=== PATIENT | female | born 1940 | race Caucasian/White ===

== ENCOUNTER → 2016-06-10 | Outpatient (CLI) | payer OTHER ==
--- NOTE | 2016-06-10 16:37 | DX ---
DEXA Bone Mineral Densitometry Screening Clinical Indications: Followup osteoporosis. The questionnaire, the patient also reports family hist ory of osteoporosis and parent with history of hip fracture. The patient also reports back pain. Prev ious left wrist fracture as well as bilateral hip fractures with femur fracture. Prior history breast cancer 2004. The patient takes supplemental calcium of 1000 mg per day along with 2000 units of val min D. She exercises regularly. Comparison: May 11, 2013 Technique: Bone Mineral Densitometry (BMD) by Dual Energy X-Ray Absorptiometry (DEXA) was performed utilizing the [employer] scanner. The lumbar spine was evaluated in the AP projection. The right forearm was evaluated in the AP projection. Vertebral fracture assessment was also performed. AP Lumbar Spine: The L1, L2, L3 and L4 vertebral bodies are evaluated. BMD: 1.210 gm/cm2 T-score: 0.1 SD Z-score: 2.1 SD Since the previous study, there has been no significant change. AP right Forearm: BMD: 0.635 gm/cm2 T-score: -2.8 SD Z-score: -0.6 SD Since the previous study, there has been no significant change. Vertebral Fracture Assessment: No significant fracture deformity. Conclusion: Considering the lowest measured site, the patient is osteoporotic with the greatest degre e in the forearm. Any bone loss in this patient is probably related to aging or estrogen deficiency. These values are stable when compared to the prior study. Preferential bone loss in the forearm robertson s raise the possibility of underlying hyperparathyroidism. Recommendations: To prevent osteoporosis and to promote bone density, consider the followin. Consider checking patient's PTH and serum calcium and phosphorus levels for possible hyperparathyr oidism. 2. Pursue a regular regimen of weightbearing and muscle-strengthening exercises in order to reduce th e risk of falls and fracture (as tolerated by the patient's general medical condition). 3. Ensure that total daily calcium intake is at least 1500 mg (diet more important than supplements). 4. Check serum hydroxy vitamin D3 (normal >30ng/ml). 5. Ensure daily intake of vitamin D at least 800 international units. 6. Consider follow up DEXA scan in 2-4 years to assess the rate of bone loss in this patient. 7. If secondary causes are excluded, then consider initiating treatment with a bisphosphonate (such a s Fosamax, Actonel or Boniva). If the patient is unable to use an oral bisphosphonate, another agent such as IV bisphosphonates (Boniva or Reclast), teriparatide (Forteo), or a selective estrogen recept or modulator (Evista) might be considered.
== END ==
LOC: FIMAGING 13:17
PROVIDERS: ATTEND Internal Medicine
DX: M81.0 Age-related osteoporosis without current pathological fracture (principal); M54.9 Dorsalgia, unspecified; Z82.62 Family history of osteoporosis

== ENCOUNTER → 2016-06-19 | Outpatient (CLI) | payer OTHER ==
--- NOTE | 2016-06-19 16:44 | MA ---
Screening Digital Mammogram with Digital Breast Tomosynthesis Unilateral Left Side Clinical Indications: Routine screening. Previous right-sided mastectomy. Technique: Standard cephalocaudal projections are obtained of left breast. Digital breast tomosynthe sis was performed in the MLO projection of the left breast with reconstruction at 1.0 mm slice thickn ess and composite MLO views reconstructed. This examination is processed by the CAD computer aided de tection system. Comparison: June 18, 2015; May 28, 2014; May 13, 2013. Breast density: B; There are scattered areas of fibroglandular density. Findings: CAD was reviewed. There are no new masses, new clusters of microcalcifications, or significant axillary lymphadenopathy . Impression: Negative mammogram. BI-RADS 1. Recommendation: Routine screening mammogram is recommended in one year. [facility] will send a result letter to the patient. Negative mammography should not preclude additional workup of a clinically suspicious finding. The patient's information is entered into a reminder system with a target due date for her next mammo gram.
== END ==
LOC: FIMAGING 11:05
DX: Z12.31 Encounter for screening mammogram for malignant neoplasm of breast (principal)
CPT/HCPCS: G0202-52

== ENCOUNTER → 2017-06-29 | Outpatient (CLI) | payer OTHER | LOC: FIMAGING 10:42 | PROVIDERS: ATTEND Internal Medicine | DX: Z12.31 Encounter for screening mammogram for malignant neoplasm of breast (principal); Z85.3 Personal history of malignant neoplasm of breast ==

== ENCOUNTER → 2017-07-19 | Outpatient (CLI) | payer OTHER | LOC: FIMAGING 10:47 | PROVIDERS: ATTEND Physician Assistant | DX: H83.91 Unspecified disease of right inner ear (principal) ==

== ENCOUNTER 2018-04-14 11:44 | Observation (INO) | payer OTHER ==
--- NOTE | 2018-04-14 12:07 | EDPHY ---
H & P Time Seen by Provider: 04/14/18 12:07 HPI/ROS: CHIEF COMPLAINT: Difficulty speaking and confusion HISTORY OF PRESENT ILLNESS: Patient was in her usual good health until yesterday around 11:00 a.m. When she went to a play with friends. They noticed that she was having difficulty speaking and the patient felt somewhat off like her mental status was different. She felt like she had some difficulty thinking of the words to say getting the mouth. She was also confused, she noted that yesterday she had difficulty figuring out how to get in her car. Today she can't remember how she got to her bed last night she still has trouble thinking of words and trouble of saying them. This is not associated with headache or double vision or trouble with her balance or weakness or numbness in extremities. No history of seizure, no ingestions, no changes in medications. REVIEW OF SYSTEMS: Eye: no change in vision ENT: no sore throat Cardiac: no chest pain or syncope Pulmonary: no cough or SOB Abdomen: no vomiting, diarrhea, abdominal pain Musculoskeletal: No neck pain Skin: no rash Neuro: HPI Constitutional: no fever : no urinary symptoms A comprehensive 10 point review of systems is otherwise negative aside from elements mentioned in the history of present illness. 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 Eyes: No scleral icterus. Pupils equal reactive extraocular motion intact. ENT, Mouth: Normal mucous membranes. Respiratory: Normal respiratory effort, breath sounds equal, lungs are clear to auscultation. Cardiovascular: Regular rate and rhythm. Gastrointestinal: Abdomen is soft and non tender. Neurological: Alert, face symmetric, normal motor and sensory in extremities. Speech is halting but fluent. She does have some difficulty getting words out but does not have difficulty pronouncing words. She is able to name objects. She knows how old she is and where she is. Skin: Warm and dry, no rashes. Musculoskeletal: No peripheral edema. Psychiatric: Not agitated. Emergency Department course/[facility]: 1405: results discussed. Admission for encephalopathy. She is not made a stroke alert because her onset of symptoms was greater than 24 hr. Does not have evidence for intracranial bleed or mass, no evidence for great vessel occlusion. Smoking Status: Never smoked Constitutional: Initial Vital Signs Temperature (C) 36.3 C 04/14/18 11:50 Heart Rate 92 04/14/18 11:50 Respiratory Rate 16 04/14/18 11:50 Blood Pressure 144/89 H 04/14/18 11:50 O2 Sat (%) 93 04/14/18 11:50 O2 Delivery Mode Room Air Allergies/Adverse Reactions: amoxicillin [Amoxicillin] Allergy (Severe, Verified 04/14/18 11:50) Rash erythromycin base [Erythromycin Base] Allergy (Severe, Verified 04/14/18 11:50) GI PAIN lactose [Lactose] Allergy (Severe, Verified 04/14/18 11:50) GI UPSET Home Medications: Medication Instructions Recorded Triamcinolone Acetonide [Nasacort] 2 sprays EACHNARE DAILY 05/03/16 Aspirin [Aspirin 81mg (*)] 81 mg PO Q2D 04/14/18 C/E/Zn/Cu/OM3/DHA/EPA/LUT/ZEAX 1 each PO DAILY 04/14/18 [Preservision Areds 2 Softgel] Carboxymethylcellulose 1% [Refresh 1 evaristo EACHEYE DAILY PRN 04/14/18 Celluvisc (*)] Cholecalciferol Vit D3 [Vitamin D3 2,000 units PO DAILY 04/14/18 2000 units tab (OTC)] Glucosamine/Chondroitin 1 each PO DAILY 04/14/18 [Glucosamine/Chondroitin (*)] Ibuprofen [Motrin (*)] 200 mg PO DAILY PRN 04/14/18 Multivitamins [Multivitamin (*)] 1 each PO Q2D 04/14/18 Sodium Cl Nasal [[place] (*)] 1 spray NS DAILY 04/14/18 Vitamin B Complex [Vitamin B 1 each PO DAILY 04/14/18 Complex (OTC)] Medical Decision Making - Diagnostics EKG Interpretation: 12-lead EKG interpreted by me; official reading is in computer system. My interpretation is sinus rhythm with left anterior fascicular block and LVH. Imaging Results: Imaging Impressions Head CT 04/14/18 12:34 Impression: 1. No acute intracranial findings. 2. Diffuse cerebral atrophy with periventricular and subcortical low attenuation consistent with chronic microvascular ischemic gliosis. Findings discussed with NAHID ENGLAND 04/14/2018 at 13:52. Head CTA 04/14/18 12:34 Impression: 1. No significant atherosclerotic disease. 2. Patent bilateral carotid and vertebral system without evidence of flow- limiting stenosis, occlusion, or dissection. Measurement of carotid stenosis is based on the residual internal carotid diameter with [place] Symptomatic Carotid Endarterectomy Trial (NASCET) based stenosis levels. CT Angiogram of the Brain Clinical Indications: Trouble with speech, slurred speech, memory loss. Technique: CT angiogram of the brain and neck was performed with the uneventful intravenous administration of 85 mL Isovue-370 contrast. Multiplanar reconstructions including 3D reconstructions performed and evaluated on Vitrea workstation in order to better evaluate the [place] vessels. Images were manipulated by the radiologist at the computer workstation. Dose reduction techniques were utilized. Findings: Major vessels of the [place] are adequately displayed, demonstrating no evidence of aneurysm, vascular malformation, flow-limiting stenosis, or occlusion. Bilateral cavernous internal carotid arteries and vertebrobasilar system demonstrates no evidence of flow-limiting stenosis, aneurysm, occlusion, or dissection. Minimal cerebrovascular atherosclerotic calcification of bilateral cavernous internal carotid arteries. Superior sagittal sinus, transverse sinuses, and major veins demonstrate no evidence of intraluminal thrombi. Impression: 1. Minimal cerebrovascular atherosclerosis. 2. No flow-limiting stenosis or intraluminal thrombi. Findings and recommendations discussed with Emergency Department physician, Dr. Nahid England at 1353 hours on April 14, 2018. Final report concurs with initial preliminary interpretation. Neck CTA 04/14/18 12:34 Impression: 1. No significant atherosclerotic disease. 2. Patent bilateral carotid and vertebral system without evidence of flow- limiting stenosis, occlusion, or dissection. Measurement of carotid stenosis is based on the residual internal carotid diameter with [place] Symptomatic Carotid Endarterectomy Trial (NASCET) based stenosis levels. CT Angiogram of the Brain Clinical Indications: Trouble with speech, slurred speech, memory loss. Technique: CT angiogram of the brain and neck was performed with the uneventful intravenous administration of 85 mL Isovue-370 contrast. Multiplanar reconstructions including 3D reconstructions performed and evaluated on [employer] workstation in order to better evaluate the [place] vessels. Images were manipulated by the radiologist at the computer workstation. Dose reduction techniques were utilized. Findings: Major vessels of the [place] are adequately displayed, demonstrating no evidence of aneurysm, vascular malformation, flow-limiting stenosis, or occlusion. Bilateral cavernous internal carotid arteries and vertebrobasilar system demonstrates no evidence of flow-limiting stenosis, aneurysm, occlusion, or dissection. Minimal cerebrovascular atherosclerotic calcification of bilateral cavernous internal carotid arteries. Superior sagittal sinus, transverse sinuses, and major veins demonstrate no evidence of intraluminal thrombi. Impression: 1. Minimal cerebrovascular atherosclerosis. 2. No flow-limiting stenosis or intraluminal thrombi. Findings and recommendations discussed with Emergency Department physician, Dr. Nahid England at 1353 hours on April 14, 2018. Final report concurs with initial preliminary interpretation. Imaging: Discussed imaging studies w/ rail car mechanic Radiologist Differential Diagnosis: Differential considered including but not limited to hypoglycemia, other metabolic, stroke or seizure, intoxicants Consult/Admit Bed Type: [place] [id number] for Andre, [facility] 1413 - Data Points Laboratory Results: Laboratory Results 04/14/18 12:22 04/14/18 12:22 04/14/18 04/14/18 04/14/18 12:29 12:22 12:22 WBC 4.72 10^3/uL 10^3/uL (3.80-9.50) RBC 4.64 10^6/uL 10^6/uL (4.18-5.33) Hgb 14.2 g/dL g/dL (12.6-16.3) POC Hgb 14.6 gm/dL gm/dL (12.6-16.3) Hct 41.4 % % (38.0-47.0) POC Hct 43 % % (38-47) MCV 89.2 fL fL (81.5-99.8) MCH 30.6 pg pg (27.9-34.1) MCHC 34.3 g/dL g/dL (32.4-36.7) RDW 12.7 % % (11.5-15.2) Plt Count 198 10^3/uL 10^3/uL (150-400) MPV 9.4 fL fL (8.7-11.7) Neut % (Auto) 53.0 % % (39.3-74.2) Lymph % (Auto) 35.6 % % (15.0-45.0) [place] % (Auto) 9.7 % % (4.5-13.0) Eos % (Auto) 0.4 % L % (0.6-7.6) Baso % (Auto) 1.1 % % (0.3-1.7) Nucleat RBC Rel Count 0.0 % % (0.0-0.2) Absolute Neuts (auto) 2.50 10^3/uL 10^3/uL (1.70-6.50) Absolute Lymphs (auto) 1.68 10^3/uL 10^3/uL (1.00-3.00) Absolute Monos (auto) 0.46 10^3/uL 10^3/uL (0.30-0.80) Absolute Eos (auto) 0.02 10^3/uL L 10^3/uL (0.03-0.40) Absolute Basos (auto) 0.05 10^3/uL 10^3/uL (0.02-0.10) Absolute Nucleated RBC 0.00 10^3/uL 10^3/uL (0-0.01) Immature Gran % 0.2 % % (0.0-1.1) Immature Gran # 0.01 10^3/uL 10^3/uL (0.00-0.10) POC Sodium 142 mEq/L mEq/L (135-145) Sodium 138 mEq/L mEq/L (135-145) POC Potassium 3.8 mEq/L mEq/L (3.3-5.0) Potassium 4.2 mEq/L mEq/L (3.3-5.0) POC Chloride 107 mEq/L mEq/L (97-110) Chloride 106 mEq/L mEq/L (97-110) Carbon Dioxide 24 mEq/l mEq/l (22-31) Anion Gap 8 mEq/L mEq/L (6-14) POC BUN 21 mg/dL mg/dL (7-23) BUN 20 mg/dL mg/dL (7-23) Creatinine 0.7 mg/dL mg/dL (0.6-1.0) POC Creatinine 0.7 mg/dL mg/dL (0.6-1.0) Estimated GFR > 60 Glucose 86 mg/dL mg/dL (70-100) POC Glucose 85 mg/dL mg/dL (70-100) Calcium 9.5 mg/dL mg/dL (8.5-10.4) Total Bilirubin Conjugated Bilirubin Unconjugated Bilirubin AST ALT Alkaline Phosphatase Troponin I Total Protein Albumin TSH 04/14/18 11:50 WBC RBC Hgb POC Hgb Hct POC Hct MCV MCH MCHC RDW Plt Count MPV Neut % (Auto) Lymph % (Auto) [place] % (Auto) Eos % (Auto) Baso % (Auto) Nucleat RBC Rel Count Absolute Neuts (auto) Absolute Lymphs (auto) Absolute Monos (auto) Absolute Eos (auto) Absolute Basos (auto) Absolute Nucleated RBC Immature Gran % Immature Gran # POC Sodium Sodium POC Potassium Potassium POC Chloride Chloride Carbon Dioxide Anion Gap POC BUN BUN Creatinine POC Creatinine Estimated GFR Glucose POC Glucose Calcium Total Bilirubin Pending Conjugated Bilirubin Pending Unconjugated Bilirubin Pending AST Pending ALT Pending Alkaline Phosphatase Pending Troponin I < 0.012 ng/mL ng/mL (0.000-0.034) Total Protein Pending Albumin Pending TSH Pending Point of Care Test Results: Chemistry 04/14/18 12:29 POC Sodium 142 mEq/L mEq/L (135-145) POC Potassium 3.8 mEq/L mEq/L (3.3-5.0) POC Chloride 107 mEq/L mEq/L (97-110) POC BUN 21 mg/dL mg/dL (7-23) POC Creatinine 0.7 mg/dL mg/dL (0.6-1.0) POC Glucose 85 mg/dL mg/dL (70-100) ISTAT H&H 04/14/18 12:29 POC Hgb 14.6 gm/dL gm/dL (12.6-16.3) POC Hct 43 % % (38-47) Departure - Departure Disposition: [facility] Inpatient Acute Clinical Impression: Encephalopathy acute Condition: Good
[2018-04-14] MEDS ORDERED: IOPAMIDOL (ISOVUE 370) 100 ML BTL IV ONE (12:41)
[2018-04-14 12:49] LABS: PLATELET COUNT 198 10^3/uL (150-400)
--- NOTE | 2018-04-14 13:48 | CPEKG ---
Test Reason : OPEN Blood Pressure : / mmHG Vent. Rate : 084 BPM Atrial Rate : 085 BPM P-R Int : 173 ms QRS Dur : 098 ms QT Int : 386 ms P-R-T Axes : 052 -62 063 degrees QTc Int : 457 ms Sinus rhythm Left anterior fascicular block Probable left ventricular hypertrophy Anterior Q waves, possibly due to LVH Confirmed by Mamadou Xiong ([id number]) on 04/14/2018 1:48:31 PM Referred By: Confirmed By:Mamadou Xiong
[2018-04-14] MEDS ORDERED: CARBOXYMETHYLCELLULOSE 1% 0.4 ML DROPERETTE EACHEYE PRN ×2 (14:05→14:39)
--- NOTE | 2018-04-14 14:16 | PDGENHP ---
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 She ate breakfast, cleaned her house, took a shower dressed and went to a play with some friends. She then was dropped off at her home doing well. She states that she did not eat lunch yesterday as she recalls and does not recall why. However in the later part of yesterday afternoon she drove to her restoration for her usual when stay choir practice to find out that she had arrived approximately 40 min early, which was a surprise to her. She then says she felt tired and sat down on a restoration pew and took a nap. As the rest of the choir members came in she her them and aroused and had a normal choir practice session. However after the choir when she when out to her car she could not figure out how to get into her car using the electric davila follow-up. She went back into the restoration and talk to 1 of the other choir members about at who showed her how to use the fob, but then the patient was unable to find her way back out of the restoration. The other restaurant team member then took her out to her car and had the patient pushed the button on the 5 which cause the lights to flash and they both assumed the car was working appropriately. No other restaurant team member left. However the patient was again unable to get her car in locked in could not figure out how to get in for which she believes was another 5 min. She finally got in but then could not figure out how to get the davila 5 into the car. After probably another 10 min or so she eventually got the car started but does not remember driving home. She remembers driving into her garage but then does not remember going into her house. Then despite not eating lunch she does not think she ate dinner last night. She does not remember much else about what happened last night. This morning when she woke up she relies she was quite confused. She went to call her sister but was unable to figure out how to type pain her code to unlock her cell phone. Eventually someone texted her on oral phone and she accidentally swiped across the screen on locking the phone. She there and called her sister and asked to be brought into the emergency room. She was still somewhat confused upon arrival to the emergency room but at this time her symptoms have fairly completely resolved. There may have been some word-finding issues as well but there were no other focal neurologic symptoms of any kind. She denies recalling headache, vision changes , palpitations chest pain or shortness of breath, fever symptoms, nausea, vertigo, change in hearing, change in ambulation although she says she felt slightly off balance. She has had no changes in medications recently and does not take any medications with neurologic side effects. She drinks 1-2 drinks per week and last had a drink about a week ago. She does state that she had been in [place] in March returning here April 02 and was drinking approximately 2 drinks per day there. However she did not have any problems with the alcohol. There is no previous history of dementia. She is aware of constant movement of her hands and feet since the but has not paid that any mind and does not interfere with any of her activities. She does admit that she times times hold her hands together or has to think to hold her feet still. There is no history of closed head injury, cancer, or other neurologic diseases. No family history of neurologic diseases. The patient's sister is here at the bedside with the patient, and she spoke to some of the people the patient was with yesterday. Those folks report that the patient did not seem quite right but there was no other specific information available from them. ROS: A comprehensive 10 system review revealed no other significant findings PAST MEDICAL HISTORY: Breast cancer 2004 with mastectomy followed by Arimidex, no recurrence known since then An episode of aspiration of peanut with postobstructive pneumonia in the right lower lobe treated with bronchoscopy and antibiotics 1999 less Osteoporosis Osteoarthritis Coronary disease Hepatitis B infection Iritis episode Obstructive sleep apnea on chronic CPAP therapy at home An episode of pancreatitis An episode of pelvic inflammatory disease Tympanic membrane perforation 1 bout of pneumonia FAMILY MEDICAL HISTORY: Heart disease Cancer SOCIAL HISTORY: 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 I have reviewed the list and ordered appropriate medicines. PHYSICAL EXAMINATION: Vital Signs: All stable without fever Network Technical Analyst: Sinus rhythm in the ER Examination: General: Lying in bed wide awake, relaxed, talkative, nutrition looks good Neurologic: alert, fully oriented, normal attention, normal affect; she has some amnesia for some of the events of yesterday but does recall a lot of the events and recalls being very confused yesterday and this morning; speech is articulate with no word-finding abnormalities and with normal flow; pupils normal, cranial nerves normal, no focal weakness, no pronator drift; notably she does have some fairly continuous writhing like movements of her hands fingers feet ankles, no Parkinson like tremor per se. Intermittently she will hold her hands together hold them still or twist her feet around each other to hold them still. No ne ballistic motions. Notably I do know this woman as she used to work here as a registered nurse, and I do not remember any of these movement issues when she worked here Skin: warm, dry, good color, no rash HEENT: normal with no evidence of trauma Neck: no mass or jvd Resps: relaxed Lungs: clear breath sounds Heart: regular, no murmur Abdomen: soft, nondistended, nontender, +BS, no mass Upper Extremities: normal Lower Extremities: no edema, warm No Bleeding or bruising Neurologic: normal speech/language, normal hide and skin colerer, no focal weakness IV site: looks normal LABORATORY DATA: Unremarkable CBC Unremarkable basic metabolic panel I have ordered a liver panel and a TSH both which are pending RADIOLOGY STUDIES: I reviewed images of noncontrast CT scan of head done in the ER and aside from some typical age-related gliosis changes it is unremarkable CT angio of the head neck or also done in the ER 12 LEAD EKG: I reviewed 12 lead tracing which shows a sinus rhythm with left anterior fascicular block but nothing acute ASSESSMENT: * acute confusional episode lasting approximately 18 hr, currently resolved * curious movement issues with her limbs, suggesting possibility of a movement disorder, not a tremor or hemiballismus but more suggestive of a choreiform disorder (no family history of chorea) * absence of acute findings on physical examination, imaging studies, laboratory studies so far The cause of her acute illness is uncertain to me at this time. This does not appear to be a stroke or seizure, but a MRI of the brain with and without contrast may be very useful to assess for any ischemic lesions, infectious abnormalities or masses that could cause seizure or other causes of these symptoms. It will be very helpful have a neurologic consultation to assess this episode I do not see evidence of infection, intoxication or exposure, organ dysfunction or metabolic cause, or other causes of acute reversible confusion PLANS: * Observation status overnight for now been may need to change to inpatient * MRI of brain with and without contrast * Check TSH, UA, B12 level I have reviewed the patient's case in detail with Dr. Mamadou Xiong I have reviewed the patient's past medical records as part of this assessment, including previous hospital admission and clinic records
[2018-04-14] MEDS ORDERED: GADOBUTROL 10 ML VIAL IVP ONE (21:32)
[2018-04-14] MEDS ORDERED: ACETAMINOPHEN 325 MG TAB PO PRN (22:44)
[2018-04-15] MEDS ORDERED: CHOLECALCIFEROL VIT D3 2,000 UNITS TAB/CAP PO SCH (09:00)
[2018-04-15] MEDS ORDERED: PRESERVISION AREDS2 FORMULA EYE VIT 1 EACH PO SCH (09:00)
[2018-04-15] MEDS ORDERED: VITAMIN B COMPLEX 1 EA CAP/TAB PO SCH (09:00)
[2018-04-15] MEDS ORDERED: GLUCOSAMINE/CHONDROITIN CAP PO SCH (09:00)
[2018-04-15] MEDS ORDERED: TRIAMCINOLONE ACETONIDE EACHNARE SCH (09:00)
[2018-04-15] MEDS ORDERED: SODIUM CL NASAL 45 ML BTL NS SCH (09:00)
[2018-04-15] MEDS ORDERED: ENOXAPARIN 40 MG/0.4 ML SYR SC SCH (09:00)
[2018-04-15 11:37] VITALS: BP 119/70
--- NOTE | 2018-04-15 15:24 | PDDCSUM ---
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 Jesús Bal PROCEDURES: MRI of brain which is normal CT scan of head unremarkable HOSPITAL COURSE SUMMARY: This patient is generally quite healthy and active, had an episode of acute onset confusion that lasted approximately 18 hr and then gradually resolved and she is now back to her baseline. Her symptoms were largely resolved at the time she arrived here. There are no focal neurologic symptoms. There is no evidence on examination or imaging studies of a stroke. There is no evidence of seizure. There is no evidence of infection, metabolic or electrolyte abnormality, internal organ dysfunction or other obvious cause. The patent had taken some Benadryl 3-4 days before the onset of her symptoms so this seems not terribly likely to have caused the episode, though wonder if she might have taken another dose on the day of the episode that she has for gotten. Her hospital stay has been without complication. There is no evidence of arrhythmia or cardiac problems. At this point she is felt stable for discharge to home and will follow up with her primary care physician. Notably on examination the patient did have some mild choreiform type movements of the hands and feet, and these are known to be chronic for decades and not progressing at any significant rate. No further diagnostic assessments or treatments are recommended at this time, but she is aware that if the symptoms progressed to the point of being activity limiting or leaving her at risk for falling she should have further assessment at the [facility] PENDING TEST RESULTS: None MEDICATION CHANGES: Advise avoiding Benadryl and other medicines with central nervous system side effects FOLLOW-UP PLAN: With primary care physician in 1-2 weeks Greater than 35 minutes bedside and care coordination time today
--- NOTE | 2018-04-15 15:45 | GCON ---
NEUROLOGY CONSULT DATE OF CONSULTATION: 04/15/2018 REFERRING PHYSICIAN: Dr. Powell CHIEF COMPLAINT: Confusion, resolved. 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 She is a fairly healthy and active person. Interestingly, she provided new history to the medical team today: Specifically , that she had some rash over the weekend and used Benadryl to treat it. She has taken Benadryl perhaps once in the last year. She may have taken it Wednesday and Wednesday; she does not recall exactly. On Wednesday, she started feeling confused while leaving her mandaeism choir, and then throughout , she felt a general confusion, unable to unlock her phone, for example, which triggered her family to bring her to the emergency department. She may have had 1 drink of alcohol on , but no cannabis or other history. REVIEW OF SYSTEMS: A 10-point review of systems was done and only pertinent to the HPI. For past medical history, social history, family history, allergies, home medications, see Dr. Powell's H and P note. TESTING: She had MRI of brain, which showed no acute infarct or any other significant abnormalities. Angiography of the head and neck showed no significant vascular obstruction or acute findings. A full laboratory evaluation is fairly unremarkable at this point. No signs of infection. PHYSICAL EXAM: VITAL SIGNS: Blood pressure 124/81, temperature 36.6, heart rate 60-70. GENERAL: No acute distress, very pleasant. NEUROLOGIC: Higher mental function: She is now lucid, coherent, cogent. No aphasia. Cranial nerve exam normal, 2 through 7 and 12. Motor exam: Normal strength, tone and reflexes throughout. Sensory exam: Normal to light touch. Coordination is normal. She does have constant fidgety movements, which she says she has had her whole life. IMPRESSION/PLAN: 1. Confusion, resolved. Overall, I wonder if this patient may have had some toxic encephalopathy from Benadryl use in the setting of advanced age. She has now complete resolution of her confusion. I have asked her not to use Benadryl going forward. She is agreeable. Fortunately, MRI of brain and angiography of the head and neck showed no evidence of stroke or other significant abnormalities. She was counseled at length. She does have some constant fidgety movements; however, she has had this "lifelong." Therefore, I do not think it is of any acute clinical significance based on the chronicity. I do not see abnormalities from a neurogenic standpoint right now. Per my view, she can discharge home when she is cleared by Hospital Medicine. She is on a baby aspirin daily, which she can continue. She does not tolerate statins. Thank you for the consultation. Please do not hesitate to call if there are any questions or changes in neurologic status. Forty-five total minutes of floor time today reviewing MRI brain, angiography of the head and neck, labs, and coordination of care. /[id number]/MODL MTDD
--- NOTE | 2018-04-15 16:56 | ASMTLACE ---
[facility] Length of stay for Answers: 2 days current admission Acuity / Level of Answers: No Care: Did the patient have an inpatient admission? Comorbidities - select Answers: Other Notes: Hx of breast cancer; He p all that apply B & C # of Emergency department Answers: 1-2 visits in the last 6 months Score: 4 Date Signed: 04/15/2018 04:29 PM Electronically Signed By:DEMIAN Erickson
--- NOTE | 2018-04-15 16:58 | ASMTCMCOM ---
CM Note CM Note Notes: Pt came in for encephalopathy, symptoms resolved. Neruology consulted. No therapies ordered. Pt medically stable for d/c, no CM d/c needs identified. Date Signed: 04/15/2018 04:31 PM Electronically Signed By:DEMIAN Erickson
[2018-04-16] MEDS ORDERED: MULTIVITAMINS 1 EACH TAB PO SCH (09:00)
[2018-04-16] MEDS ORDERED: ASPIRIN 81 MG CHEWABLE TAB PO SCH (09:00)
== END 2018-04-15 16:30 | disposition home or self-care (01) ==
LOC: F3N 14:30
PROVIDERS: ADMIT Internal Medicine; ATTEND Internal Medicine
DX: R41.0 Disorientation, unspecified (principal); G25.9 Extrapyramidal and movement disorder, unspecified; G47.33 Obstructive sleep apnea (adult) (pediatric); I25.10 Atherosclerotic heart disease of native coronary artery without angina pectoris
CPT/HCPCS: 70450; 70496; 70498; 70553; 92523; 93005; 96372; 99285; A9585; G0378; G9162; G9163; G9164; J1650; Q9967; 82435-PO; 82565-PO; 82607-90; 82947-PO; 84132-PO; 84295-PO; 84520-PO; 85014-PO

== ENCOUNTER → 2018-07-19 | Outpatient (CLI) | payer OTHER | LOC: FIMAGING 11:39 | PROVIDERS: ATTEND Internal Medicine | DX: Z12.31 Encounter for screening mammogram for malignant neoplasm of breast (principal); Z85.3 Personal history of malignant neoplasm of breast; Z90.11 Acquired absence of right breast and nipple ==